=== PATIENT | male | born 1960 | race Caucasian/White ===

== ENCOUNTER 2024-03-21 12:16 | Outpatient (CLI) | payer OTHER, SELFPAY ==
[2024-03-21 13:03] LABS: Creatinine* 0.8 mg/dL (0.5-1.5); Estimated Glomerular Filt Rate 100 ml/min
== END 2024-03-21 12:17 | disposition home or self-care (01) ==
LOC: CT 12:22
PROVIDERS: PCP Family Medicine; Visit Provider Family Medicine
DX: R31.29 Other microscopic hematuria (principal); K57.30 Diverticulosis of large intestine without perforation or abscess without bleeding
CPT/HCPCS: 36415; 74178; 82565; Q9967

== ENCOUNTER 2024-05-29 07:06 | Outpatient (CLI) | payer OTHER, SELFPAY ==
--- NOTE | 2024-05-29 08:40 | P.ANES_ITS ---
Anesthesia Charges Start Date/Time Anesthesia Start Date: 05/29/24 Anesthesia Start Time: 08:01 Stop Date/Time Anesthesia Stop Date: 05/29/24 Anesthesia Stop Time: 08:34 Coding CPT Codes CPT Codes: LAINA LWR INTST NDSC NOS - 11049 ([id number]) P2 - PATIENT W/MILD SYST DISEASE, QK - DAIRY FARM OPERATOR 2-4 CNCRNT ANES PROC, QX - TELEHEALTH NURSE SVC W/ MD MED DIRECTION
--- NOTE | 2024-05-29 08:40 | W.ANESCHARGE ---
Anesthesia Charges Start Date/Time Anesthesia Start Date: 05/29/24 Anesthesia Start Time: 08:01 Stop Date/Time Anesthesia Stop Date: 05/29/24 Anesthesia Stop Time: 08:34 Coding CPT Codes CPT Codes: LAINA LWR INTST NDSC NOS - 30801 ([id number]) P2 - PATIENT W/MILD SYST DISEASE, QK - FARM BOSS 2-4 CNCRNT ANES PROC, QX - SCIENCE EDUCATION PROFESSOR SVC W/ MD MED DIRECTION
--- NOTE | 2024-05-29 12:07 | P.ANES_ITS ---
Anesthesia Charges Start Date/Time Anesthesia Start Date: 05/29/24 Anesthesia Start Time: 08:01 Stop Date/Time Anesthesia Stop Date: 05/29/24 Anesthesia Stop Time: 08:34 Coding CPT Codes CPT Codes: LAINA LWR INTST NDSC NOS - 53552 ([id number]) QK - BRAKE HOLDER 2-4 CNCRNT LAINA PROC, QX - QUILL FIXER SVC W/ MD MED DIRECTION, P2 - PATIENT W/MILD SYST DISEASE
--- NOTE | 2024-05-29 12:07 | W.ANESCHARGE ---
Anesthesia Charges Start Date/Time Anesthesia Start Date: 05/29/24 Anesthesia Start Time: 08:01 Stop Date/Time Anesthesia Stop Date: 05/29/24 Anesthesia Stop Time: 08:34 Coding CPT Codes CPT Codes: LAINA LWR INTST NDSC NOS - 16747 ([id number]) QK - RECEIVING SUPERVISOR 2-4 CNCRNT LAINA PROC, QX - SUPERVISOR PARKING LOT SVC W/ MD MED DIRECTION, P2 - PATIENT W/MILD SYST DISEASE
== END 2024-05-29 07:07 | disposition home or self-care (01) ==
LOC: OP CLINIC 07:06
PROVIDERS: PCP Family Medicine; Visit Provider Surgery
DX: Z12.11 Encounter for screening for malignant neoplasm of colon (principal); Z86.0109 Personal history of other colon polyps; Z80.0 Family history of malignant neoplasm of digestive organs; K57.30 Diverticulosis of large intestine without perforation or abscess without bleeding; D12.3 Benign neoplasm of transverse colon; D12.1 Benign neoplasm of appendix
CPT/HCPCS: 00811; 00812; 45385; 88305; J2405; J2704

== ENCOUNTER 2024-06-15 12:01 | Emergency (ER) | payer OTHER, SELFPAY ==
--- OUTSIDE RECORDS SUMMARY | 2024-06-15 12:04 | XMS_ITS | Encounter Summary ---
Author Organization [facility] Address [address] [place] [address] Care Team Providers Care Basket Bottom Machine Operator Name Role Phone Unavailable Primary Care Provider Unavailabl e Encounter Details Date Type Department Care Team (Late st Contact Info) Description 02/17/2016 Historical Ophthalmology RST OPH 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 - 02/17/2016 10:06 AM CST Eye General CHIEF COMPLAINT Follow up. HISTORY OF PRESENT ILLNESS PM: Last saw Rheum in January and was felt to be approaching remission. Currently on Pred 2.5 mg PO BID (down from 40 mg per day) and is on 6 tablets of MTX per week. He feels like overall eyes are getting better. He has a history of steroid induced glaucoma. Has had some intermittent eye pain since last visit. It occurs daily and is typically present. Right eye ball itself sometimes hurts. Leftside is more in the orbit radiating to other parts o the head. Right is 1/10 dull pain associated with some stabbing. Left eye 5/10 and is a more constant dull ache with some stabbing type of pain. Overall, pain has improved since last visit. No double vision. Vision is okay with glasses. 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 Could consider local steroid. His optic nerves look fine but could consider starting topical ocular antihypertensive. He still has some pain and it is not trochlea related. Scan is better but not completely resolved. We discussed options including retrobulbar steroids (kenalog 40, decadron 4). He wishes to proceed. Note intraocular pressures but thick corneas. Let's get baseline disc photos + nerve fiber layer OCTfirst He'll call in 3 weeks or so DIAGNOSIS #1 ANCA-associated vasculitis #2 Left orbital inflammation #3 Steroid induced ocular hypertension CDM Reports - EYEGEN Id: [id number] Status: Fnl documented in this encounter Plan of Treatment Upcoming Encounters Date Type Department Care Team (Late st Contact Info) Description 06/26/2024 7:30 AM CDT Appointment Department of Laboratory Medicine and Pathology, [facility] in [place], [place] [address] [place] [phone] Shauna Schmidt APRN, C.N.P., M.S. [address] [place] [phone] 06/26/2024 7:40 AM CDT Appointment Department of Laboratory Medicine and Pathology, [facility] in [place], [place] [address] [place] [phone] Shauna Schmidt APRN, C.N.P., M.S. [address] [place] [phone] 06/26/2024 9:30 AM CDT Office Visit Division of Rheumatology in [place], [place] [address] [place] [phone] Shauna Schmidt APRN, C.N.P., M.S. [address] [place] [phone] documented as of this encounter Visit Diagnoses Not on filedocumented in this encounter Additional Health Concerns Infection Onset Date Last Indicated Resolved Time Protective Environment 06/08/2022 06/08/2022 documented as of this encounter
--- OUTSIDE RECORDS SUMMARY | 2024-06-15 12:04 | XMS_ITS | Clinical Summary ---
Author Organization [facility] Address [address] [place] [address] Care Team Providers Care Dough Sheeter Name Role Phone Unavailable Primary Care Provider Unavailabl e Source Comments Patient records contain information from all sites at [facility]. For routine questions regarding patient records, call [phone] during business hours, M-F 8:00 AM - 5:00 PM Central Time. Record requests for emergency care only can be directed to [phone] at any time.[facility] Allergies Active Allergy Reactions Criticality Noted Date Comments Gluten GI intolerance 12/04/2018 Hydrocodone-Acetaminophen Other (see comments) 11/19/2014 aggitation Ibuprofen GI intolerance 11/19/2014 Omeprazole GI intolerance 11/19/2014 Opioids - Morphine Analogues Other (see comments) 11/19/2014 Aggitation Shellfish Containing Products Other (see comments) 11/19/2014 Shellfish Derived Other (see comments) Low 08/28/19 15 Tamsulosin Other (see comments) 07/30/2013 Medications tretinoin (RETIN-A) 0.05 % cream Apply 1 Application topically at bedtime. Apply to face daily at bedtime. 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 Updated lab work required for further refills. 84 tablet 1 12/28/19 24 Active levothyroxine 137 mcg tablet Take 137 mcg by mouth daily before morning meal. 03/03/19 25 Active Active Problems Problem Noted Date Diagnosed Date Vasculitis Antineutrophil Cytoplasmic Antibody A ssociated 06/23/2015 Encounters Date Type Department Care Team Description 05/12/2024 Orders Only Division of Rheumatology in [place], [place] [address] [place] [phone] Shauna Schmidt APRN, C.N.P., M.S. 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 Hematuria Urinalysis (Primary Dx); Benign Prostatic Hyperplasia Hypertrophy With Obstruction; Slowing Urinary Stream from Last 3 Months Immunizations Immunization Administration Dates Next Due Influenza TIV (IM) 02/18/2012,12/08/2009 Influenza, Injectable, Mdck, Preservative Free, Quadrivalent 01/15/2016 Influenza, Seasonal, Injectable 02/18/2012,12/08 RZV (SHINGRIX) 01/03/2019 SARS-COV-2 (COVID-19) - MODERNA(Discontinued) 10/01/2020 Td (Adult), adsorbed 08/22/2021 Tdap 12/08/2009 influenza vaccine quad (FLUZONE/FLUARIX) (6 months and older)(PF) 12/04/2020,12/02/2019,11/29/2018,2017,12/05/2013 Family History Medical History Relation Name Comments Alcohol abuse Brother thomas cuca Lung cancer Brother thomas cuca Alcohol abuse Father Thomas brianil Coronary artery disease Father's Brother josselin heil Diabetes Father's Brother josselin heil Alcohol abuse Maternal Grandfather Kelvin alamo Dementia Maternal Grandmother tiesha alamo Depression Maternal Grandmother tiesha alamo Hyperlipidemia Maternal Grandmother tiesha alamo Hypertension Maternal Grandmother tiesha alamo Rheum arthritis Maternal Grandmother tiesha alamo Depression Mother nate heil Hyperlipidemia Mother nate hejaya Rectal cancer Mother nate zaman 1986 at 5 9 years old Alcohol abuse Paternal Grandfather Elias [place] chronic leukemia Leukemia Paternal Grandfather Elias [place] chronic leukemia Alcohol abuse Sister 1 [employer] Depression Sister 1 [employer] [place] Hyperlipidemia Sister 1 [employer] [place] Alcohol abuse Sister 2 romy heil Anxiety disorder Sister 2 romy heil Depression Sister 2 romy heil Drug abuse Sister 2 romy heil Thyroid disease Sister 2 romy heil Alcohol abuse Sister 3 israel heil Drug abuse Sister 3 israel heil Hyperlipidemia Sister 3 israel heil Thyroid disease Sister 4 Rain Talbot ( Cuca) Relation Name Status Comments Brother thomas cuca Father Thomas austyn Father's Brother josselin zaman Maternal Grandfather Kelvin alamo Maternal Grandmother tiesha alamo Mother nate heil Paternal Grandfather Elias [place] chronic leukemia Sister 1 [employer] [place] Sister 2 romy heil Sister 3 israel heil Sister 4 Rain [place] ( Cuca) Social History Tobacco Use Types Packs/Day Years Used Date Smoking Tobacco: Former Cigarettes 1 03/17/1974 - 12/16/1977 Smokeless Tobacco: Never Tobacco Cessation:Counseling Given: Not Answered Alcohol Use Standard Drinks/Week Comments Yes 1 (1 standard drink = 0.6 oz pur e alcohol) [facility] Utilities Answer Date Recorded In the past 12 months has e [employer], gas, oil, or water [employer] threatened to shut off services in your home? No 06/15/2023 Humiliation, Afraid, Rape, and Kick questionnair e Answer Date Recorded Within the last year, have y ou been afraid of your partner or ex-partner? No 06/04/2022 Within the last year, have y ou been humiliated or emotionally abused in other ways by your partner or ex-partner? No Within the last year, have y ou been kicked, hit, slapped, or otherwise physically hurt by your partner or ex-partner? No 06/04/2022 Within the last year, have y ou been raped or forced to have any kind of sexual activity by your partner or ex-partner? No 06/04/2022 Social Connection and Isolat ion Panel [NHANES] Answer Date Recorded In a typical week, how many times do you talk on the phone with family, friends, or neighbors? Once a week 06/04/2022 How often do you get togethe r with friends or relatives? More than three times a week 06/04/2022 Attends Buddhism Services Not on file 06/04 Do you belong to any clubs o r organizations such as episcopalian groups, unions, fraternal or athletic groups, or school groups? Yes 06/04/2022 How often do you attend meet ings of the clubs or organizations you belong to? More than 4 times per year 06/04/2022 Are you , , di vorced, , never , or living with a partner? 06/04/2022 AUDIT-C Answer Date Recorded Q1: How often do you have a drink containing alc ohol? Monthly or less 06/04/2022 Q2: How many drinks containi ng alcohol do you have on a typical day when you are drinking? 1 or 2 06/04/2022 Q3: How often do you have si x or more drinks on one occasion? Never 06/04/2022 Overall Financial Resource Strain (CARDIA) Answe r Date Recorded How hard is it for you to pa y for the very basics like food, housing, medical care, and heating? Not hard at all 06/04/2022 [facility] - Occupational Stress Questionnaire Answer Date Recorded Do you feel stress - tense, restless, nervous, or anxious, or unable to sleep at night because your mind is troubled all the time - these days? To some extent 06/04/2022 Exercise Vital Sign Answer Date Recorde d On average, how many days pe r week do you engage in moderate to strenuous exercise (like a brisk walk)? 3 days 06/15/2023 On average, how many minutes do you engage in exercise at this level? 90 min 06/15/2023 Hunger Vital Sign Answer Date Recorded Within the past 12 months, y ou worried that your food would run out before you got the money to buy more. Never true 06/15/19 24 Within the past 12 months, t he food you bought just didn't last and you didn't have money to get more. Never true 06/15/2023 PRAPARE - Transportation Answer Date Re corded In the past 12 months, has l ack of transportation kept you from medical appointments or from getting medications? No 06/05 In the past 12 months, has l ack of transportation kept you from meetings, work, or from getting things needed for daily living? No 06/15/2023 Nutrition Answer Date Recorded On average, how many serving s of fruits and vegetables do you eat per day (serving size is equal to 1 cup or approximately the size of a tennis ball)? 0-2 06/15/2023 Dental Answer Date Recorded Dental: Regular Dentist Yes 10/02/19 Employment Answer Date Recorded Employment status Employed and actively working without restrictions 06/15/2023 Housing Stability Answer Date Recorded What is your living situation today? I have a [facility] place to live 06/15/2023 Education Answer Date Recorded What is the highest level of school you have completed or the highest degree you have received? 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 Gender Identity Male 07/24/2017 12:19 PM CDT Sexual Orientation Lesbian or Clark 07/24/2017 12 :19 PM CDT Last Filed Vital Signs Vital Sign Reading Time Taken Comments Blood Pressure 128/69 12/28/2023 1:02 PM AUTOMATIC CLIPPER Pulse 69 12/28/2023 1:02 PM AUTOMATIC CLIPPER Temperature 36.3 C (97.3 F) 12/28/2023 1:02 PM AUTOMATIC CLIPPER Respiratory Rate - - Oxygen Saturation - - Inhaled Oxygen Concentration - - Weight 66 kg (145 lb 8.1 oz) 12/28/2023 1:02 PM AUTOMATIC CLIPPER Height 180.8 cm (5' 11.18) 12/28/2023 1:[address] Body Mass Index 20.19 12/28/2023 1:02 PM AUTOMATIC CLIPPER Plan of Treatment Upcoming Encounters Date Type Department Care Team (Late st Contact Info) Description 06/26/2024 7:30 AM CDT Appointment Department of Laboratory Medicine and Pathology, [facility], in [place], [place] [address] [place] [phone] Shauna Schmidt APRN, C.N.P., M.S. [address] [place] [phone] 06/26/2024 7:40 AM CDT Appointment Department of Laboratory Medicine and Pathology, [facility], in [place], [place] [address] [place] [phone] Shauna Schmidt APRN, C.N.P., M.S. [address] [place] [phone] 06/26/2024 9:30 AM CDT Office Visit Division of Rheumatology in [place], [place] [address] [place] [phone] Shauna Schmidt APRN, C.N.Tru., M.S. [address] [place] [phone] Health Maintenance Due Date Last Done Comments CT Colonography 1962 Cologuard 1962 Hepatitis A Vaccines (1 of 2 - Risk 2-dose series) 1981 Pneumococcal vaccine (50+ years) (1 of 2 - PCV) 1981 Zoster Vaccines (2 of 2) 02/28/2019 01/03/2019 Hepatitis B Vaccines (1 of 3 - Risk 3-dose series) 2022 RSV vaccine - (32-36 weeks) or 60+ years (1 - Risk 60-74 years 1-dose series) 2022 Colonoscopy 09/21/2022 09/21/2017 Colorectal Cancer Surveillance 09/21/2022 Fasting Glucose for Diabetes Screening 03/26/2023 03/26/2020, 12/02/2019, 01/14/2019 Thyroid Stimulating Hormone (TSH) test for thyroid function 12/15/2023 12/14/2022, 08/22/2021, 12/02/2019, Additional history exists Depression Screening (Annual PHQ-2) 02/06/2024 COVID-19 Vaccine (7 - Moderna risk season) 2024 01/12/2024, 12/10/2021, 05/07/2021, Additional history exists Lipid (Cholesterol) Screening 12/15/2027 12/14/2022, 08/22/2021 DTaP,Tdap,and Td Vaccines (3 - Td or Tdap) 08/23/2031 08/22/2021, 12/08/2009 Hepatitis C Screening Completed 06/23/2015 Influenza Vaccine Completed 01/12/2024, , 12/10/2021, Additional history exists HPV Vaccines Aged Out No longer eligi ble based on patient's age to complete this topic IPV Vaccines Aged Out No longer eligi ble based on patient's age to complete this topic Procedures Procedure Name Priority Date/Time Associated Diagnosis Comments UROLOGY IMAGE EXAM Routine 05/01/2024 9: [address] Routine 03/21/2024 1:25 PM AUTOMATIC CLIPPER GLUCOSE, FASTING, S/P Routine 03/26/2020 10:24 AM AUTOMATIC CLIPPER 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 The clinical documentation to support these images can be found on the encounter that produced images. us Provider Not In System IMG NON RAD IMAGING PROCE DURES Final Result [facility] NA * CT UROGRAM-Outside CT (03/21/2024 1:25 PM AUTOMATIC CLIPPER) Narrative [facility] - 04/18/2024 4:59 PM CDT This order has been created and auto-finalized to support the import of outside images. If available, original interpretation can be found on the Media Tab in Chart Review, in Document Viewer, as an image in InfinityView or as an Addendum. If a re-interpretation or overread is required please follow defined workflow. us Provider Not In System IMG CT PROCEDURES Final R esult Performing Organization Address [place] Co de Phone Number [facility] NA * Glucose, Fasting (03/26/2020 10:24 AM AUTOMATIC CLIPPER) Pathologist [facility] Glucose, P 99 70 - 100 mg/dL 03/26/2020 11:28 AM AUTOMATIC CLIPPER DTL Last Intake 13 hr 03/26/2020 10:44 AM AUTOMATIC CLIPPER DTL Blood (Blood, Venous) 03/26/2020 10:24 AM AUTOMATIC CLIPPER 03/26/2020 10:44 AM AUTOMATIC CLIPPER Shauna Schmidt APRN, C.N.P., M.S. LAB BLOOD NO N ADD-ON Final Result Performing Organization Address [facility] de Phone Number [facility] 200 [place] [address], [facility] [address] [place] [address] * Thyroid Function [place] (09/20/2018 11:01 AM CDT) Pathologist [facility] TSH, Sensitive 1.8 0.3 - 4.2 mIU/L 09/20/2018 3:11 PM CDT Blood (Blood, Venous) 09/20/2018 11:01 AM CDT 09/20/2018 2:15 PM CDT Shauna Schmidt APRN, C.N.P., M.S. LAB BLOOD AD D-ON Final Result Performing Organization Address [facility] Co de Phone Number [facility] [address] [place] [phone] * (ABNORMAL) Chronic Hepatitis Profile (06/23/2015 5:54 PM CDT) HBs Antibody, Quantitative, S <5.0 Unvaccinate d: <5.0; Vaccinated: >=12.0 MIU/ML [facility] HCV Ab, S Negative Negative [facility] [place] Comment:[id number] rat io is <1.00. HBs Antigen, S Negative Negative [facility] HBs Antibody,S Negative Unvaccinate d: Negative; Vaccinated: Positive [facility] Comment:Patient is presumed to be not immune to infection with HBV. HBc Total Ab, S Positive(A) Negative [facility] Comment: If clinically indicated, testing for Hepatitis B Core IgM antibody is necessary to differentiate between acute and past HBV infection. 06/23/2015 5:54 PM CDT 06/23/2015 5:54 PM CDT Olegario Ndiaye M.D. LAB MICROBIOLOGY - BLOOD ORDERABLES Final Result [facility] [address] from Last 3 Months or Most Recently Relevant to Health Maintenance Additional Health Concerns Infection Onset Date Last Indicated Protective Environment 06/08/2022 3 Insurance [employer] [place] [id number]
--- OUTSIDE RECORDS SUMMARY | 2024-06-15 12:04 | XMS_ITS | Encounter Summary ---
Author Organization [facility] Address [address] [place] [address] Care Team Providers Care Dynamotor Repairer Name Role Phone Unavailable Primary Care Provider Unavailabl e Reason for Visit * Reason Comments Consult Blood in Urine * Appointment Request (Routine) - Pending Review Specialty Diagnoses / Procedures Referred By Pari hyde Referred To Contact Urology Diagnoses Microhematuria Rush Hope M.D. [address] [place] [phone] Phone: tel: fax: Referral ID Status Reason Start Date Expiration Date V isits Requested Visits Authorized [id number] Pending Review 03/26/2024 06/26/2025 1 1 Encounter Details Date Type Department Care Team (Latest Contact Info) Description 05/01/2024 9:15 AM CDT Comprehensive Visit Department of Urology in [place], [place] [address] [place] [address] Alexandro Gomez M.D. [address] [place] [address] Hematuria Urinalysis (Primary Dx); Benign Prostatic Hyperplasia Hypertrophy With Obstruction; Slowing Urinary Stream Social History Tobacco Use Types Packs/Day Years Used Date Smoking Tobacco: Former Cigarettes 1 03/17/1974 - 12/16/1977 Smokeless Tobacco: Never Alcohol Use Standard Drinks/Week Comments Yes 1 (1 standard drink = 0.6 oz pur e alcohol) [facility] Utilities Answer Date Recorded In the past 12 months has th e [employer], gas, oil, or water [employer] threatened to shut off services in your [...] than three times a week 06/04/2022 Attends Cheondoism Services Not on file 06/04 Do you belong to any clubs o r organizations such as jehovah's witness groups, unions, fraternal or athletic groups, or [...] and heating? Not hard at all 06/04/2022 [facility] Occupat ional Health - Occupational Stress [...] Date Recorded Dental: Regular Dentist Yes 10/02/19 21 Employment Answer Date Recorded Employment status Employed and actively working without restrictions 06/15/2023 Housing Stability Answer Date Recorded What is your living situation today? I have a [facility] place to live 06/15/2023 Education Answer Date Recorded What is the highest level of school you have completed or the highest degree you have received? Associate degree: academic program 06/04/2022 Sex and Gender Information Value Date Recorded Sex Assigned at Male 09/15/2019 12:11 AM CDT Legal Sex Male 9:15 PM [employer]GER [employer] Gender Identity Male 07/24/2017 12:19 PM CDT Sexual Orientation Lesbian or Clark 07/24/2017 12 :19 PM CDT documented as of this encounter Procedure Notes * Alexandro Gomez M.D. - 05/01/2024 9:15 AM CDT CHIEF COMPLAINT / REASON FOR VISIT Cystoscopy. The patient was appropriately identified with at least two separate identifiers and the correct procedure was confirmed. Verbal consent was obtained. INDICATION: Microscopic hematuria, lower urinary tract symptoms and thickened bladder wall INSTRUMENT: Flexible cystourethroscope. ANESTHESIA: 2% aqueous lidocaine jelly introduced into the urethra. PROCEDURE: The patient was placed in a supine position. The genitalia were prepped and draped sterilely. The urethra was anesthetized with 2% aqueous lidocaine jelly. The cystoscope was advanced intothe urethra. FINDINGS: Meatus: Normal. Urethra: unremarkable. Prostate: Length: 3.5 cm. Lateral Lobes: Mild to moderate hypertrophy with partial visual obstruction. Middle Lobe: absent. Bladder Neck: Elevated median bar and Lateral lobes protrude into the bladder . Residual Urine: Minimal (< 75 ml). Ureteral Orifices: Singular bilaterally, normal position on the trigone, slit- like in configurationand with clear efflux of urine noted bilaterally. Trabeculation: mild. Tumors: No tumors, exophytic lesions, foreign bodies or calculi. The procedure was well tolerated by the patient. No uninhibited contractions. Normal sensation of filling. Post cystoscopy uroflow is performed: Electronic calibrated uroflow is performed. The patient voided 166 mL of urine in 46.7 seconds. Peak flow is 8.1 mL/sec with a mean flow of 3.7 mL/sec. The shapeof the curve is slow with a gradual taper. Bladder scan postvoid residual is estimated to be 4 mL. He was discharged from the office in satisfactory condition. Post-cystoscopy instructions were reviewed with him. IMPRESSION: 1. Alen-xv-lpydoyeg benign prostatic hypertrophy with mild lower urinary tract symptoms 2. Otherwise normal cystoscopy, bladder wall thickening consistent with trabeculation 3. Empties bladder well PLAN: See separate dictation of today's date. Alexandro Gomez M.D. 05/01/24 10:09 AM CDT documented in this encounter Consult Notes * Alexandro Gomez M.D. - 05/01/2024 9:15 AM CDT SUBJECTIVE CHIEF COMPLAINT / REASON FOR VISIT Chief Complaint Patient presents with Consult Blood in Urine REFERRING PROVIDER: Rush Hope M.D. HISTORY OF PRESENT ILLNESS This is a 64-year-old male whom I am asked to see. He was recently found to have 3 to 10 red cells per high-powered field. He has never had gross hematuria. He has a many year history of reduced force of stream, split stream, some dribbling and urgency. The patient has smoked briefly in his teen years. He works as a hairdresser. No other unusual chemical exposures. Grandparent with a history of bladder cancer. He indicates a few years ago another urologist placed him on tamsulosin. He had significant side effects including fatigue and rhinorrhea. He did not observe any improvement in his stream. I-PSS Urinary Symptoms Score: (Patient-Rptd) 11 I-PSS Quality of Life Score: (Patient-Rptd) 3 Answers submitted by the patient for this visit: Urinary Symptoms (Submitted on 04/28/2024) Sensation that your bladder is not completely emptying after urinating: Yes Weak/poor urine stream: Yes None of the above: Yes Are you able to sense when your bladder is full?: Yes How many times daily do you typically urinate during the day?: 5 How many times do you typically wake up and urinate at night?: 1 Have you had a urinary tract infection (UTI) within the past 1 year, and if so how many?: none Have you had any kidney infections or required hospitalized for kidney failure?: No Have you required a catheter placed because you could not empty your bladder?: No Do you ever unintentionally leak urine?: No Have you ever or are currently taking any treatments to treat your urinary symptoms?: none Have you ever had any surgical or office procedures to improve your urinary symptoms?: No MEDICAL HISTORY Medical History[1] SURGICAL HISTORY Surgical History[2] FAMILY HISTORY Family History[3] SOCIAL HISTORY Social History Tobacco Use Smoking status: Former Current packs/day: 0.00 Types: Cigarettes Start date: 01/14/1975 Quit date: 12/16/1977 Years since quittin.4 Smokeless tobacco: Never Substance Use Topics Alcohol use: Yes Alcohol/week: 1.0 standard drink of alcohol Types: 1 Glasses of wine per week CURRENT MEDICATIONS Current Medications[4] ALLERGIES/ CONTRAINDICATIONS Allergies[5] OBJECTIVE VITAL SIGNS There were no vitals taken for this visit. PHYSICAL EXAMINATION General: Healthy-appearing adult male in no apparent distress. No communication barriers. Head: No abnormality of appearance. No facial abnormalities. No neck masses. Thyroid: No thyroid enlargement. Heart: Regular rate and rhythm. Abdominal aorta is not palpable. Femoral pulses are 2+ and equal bilaterally. No peripheral cyanosis or edema. Lungs: Normal respiratory movements. No shortness of breath. Abdomen: Flat and nondistended. No guarding. No tenderness. No ascites. No hepatosplenomegaly. Kidneys are not palpable. Bladder size is normal. There are no ventral hernias. There are no inguinal hernias. Rectum: Perirectal Region: Unremarkable without evidence of condyloma, skin tags or other lesions. Rectal sphincter tone is normal. There are no rectal masses. Prostate: Prostate is approximately 40 grams in size. It is smooth in consistency. It is symmetrical. Prostate is without nodules or tenderness. Seminal vesicles are normal. Genitalia: Penis: No discharge, no masses and no plaques. Meatus is normally located on the glans penis, there is no meatal scarring and it is of normal size. Penis is circumcised. Scrotum: No rashes. No hydroceles or spermatoceles are present. No palpable varicocele is noted. Testes: Both testes are descended. They are without masses or tenderness. Each testis is of normal size and consistency. Epididymides: Each epididymis is of normal size, without masses, without tenderness or signs of epididymitis. Both the right and left vas deferens are palpable. Perineum: Unremarkable. There are no obvious skin tags, condyloma or other lesions. Spine: No spinal tenderness. No costovertebral angle tenderness. DIAGNOSTICS Prostate specific antigen dated February 28, 2024 is 1.25 Urine cytology from February 28, 2024 reveals no high-grade urothelial cells, there are prominent clusters of bland urothelial cells present CT urogram is reviewed. I reviewed the films, I do not have access to the report. Some bladder wallthickening is identified, particularly near the dome of the bladder. No solid renal masses. No urinary tract stones. No hydronephrosis. No defects of filling. Large prostate. Cystoscopy is performed today and detailed in the separate report. This is combined with a uroflow.Briefly evidence of benign prostatic hypertrophy. Prostate extension into the bladder with an elevated median bar. Slow stream but empties bladder well. ASSESSMENT / PLAN #1 Hematuria Urinalysis #2 Benign Prostatic Hyperplasia Hypertrophy With Obstruction #3 Slowing Urinary Stream Plan: We discussed the possibility of medical and surgical management for benign prostatic hypertrophy. Given his relatively mild symptoms and excellent bladder emptying he does not require treatment at this point. It is merely an option. We discussed a variety of medicines including alpha blockers, medicine such as finasteride and a variety of procedures. The patient will let us know if he is interested in trialing finasteride. He has already tried and was not happy with tamsulosin. In regards to his hematuria I would recommend that he have a repeat urinalysis and urine cytology under the auspices of his primary provider. If either of these change adversely repeat evaluation should be considered. We discussed foods that may be beneficial to prostate health. Alexandro Gomez M.D. 05/01/24 10:32 AM CDT [1] Past Medical History: Diagnosis Date Anxiety Generalized Disorder Use clonazepam daily or prn BenignProstatic Hyperplasia Localized Year approximately 1999 Gastroesophageal Reflux Disease NOS Approximately year 2004 Headache Unspecified Occasional for last 3 months approximately Hepatitis Positive core antibody / DNA negative Hyperlipidemia Approximately year 1999 Hypothyroidism Liver Disease Positive core antibody hepatitis B Other Specified Health Status ANCA positive Vasculatis Skin lesions Polyp Colon 2013 Skin Cancer (Primary) NOS Nasal cell face Stone Kidney Past 10 years have had two episodes [2] Past Surgical History: Procedure Laterality Date ORBIT - ORBITOTOMY Left 11/24/2014 Orbit - orbitotomy Notes: superior orbitotomy, incisional biopsy [3] Family History Problem Relation Name Age of Onset Depression Mother nate heil Hyperlipidemia Mother nate heil Rectal cancer Mother nate heil 1986 at 59 years old Depression Maternal Grandmother tiesha alamo Dementia Maternal Grandmother tiesha alamo Hypertension Maternal Grandmother tiesha alamo Hyperlipidemia Maternal Grandmother tiesha alamo Rheum arthritis Maternal Grandmother tiesha alamo Depression Sister [employer] Hyperlipidemia Sister [employer] Alcohol abuse Sister [employer] [place] Depression Sister romy heil Anxiety disorder Sister romy heil Thyroid disease Sister romy heil Alcohol abuse Sister romy heil Drug abuse Sister romy heil Coronary artery disease Father's Brother josselin heil Diabetes Father's Brother josselin heil Hyperlipidemia Sister israel heil Alcohol abuse Sister israel heil Drug abuse Sister israel heil Lung cancer Brother thomas blunt Alcohol abuse Brother thomas cuca Leukemia Paternal Grandfather Elias Zaman chronic leukemia Alcohol abuse Paternal Grandfather Elias Zaman chronic leukemia Thyroid disease Sister Rain Talbot ( Blunt) Alcohol abuse Maternal Grandfather Kelvin alamo Alcohol abuse Father Thomas zaman [4] Current Outpatient Medications Medication Sig Dispense Refill folic acid 1 mg tablet Take 1 tablet (1,000 mcg total) by mouth daily. 90 tablet 3 levothyroxine 137 mcg tablet Take 137 mcg by mouth daily before morning meal. methotrexate (TrexalL) 2.5 mg tablet Take 7 tablets (17.5 mg total) by mouth once a week. Updated lab work required for further refills. 84 tablet 1 tretinoin (RETIN-A) 0.05 % cream Apply 1 Application topically at bedtime. Apply to face daily at bedtime. 45 g 3 No current facility-administered medications for this visit. [5] Allergies Allergen Reactions Gluten GI intolerance Hydrocodone-Acetaminophen Other (see comments) aggitation Ibuprofen GI intolerance Omeprazole GI intolerance Opioids - Morphine Analogues Other (see comments) Aggitation Shellfish Containing Products Other (see comments) Tamsulosin Other (see comments) Shellfish Derived Other (see comments) documented in this encounter Plan of Treatment Upcoming Encounters Date Type Department Care Team (Late st Contact Info) Description 06/26/2024 7:30 AM CDT Appointment Department of Laboratory Medicine and Pathology, [place], [place] [address] [place] [phone] Shauna Schmidt APRN, C.N.P., M.S. [address] [place] [phone] 06/26/2024 7:40 AM CDT Appointment Department of Laboratory Medicine and Pathology, [place], [place] [address] [place] [address] Shauna Schmidt APRN, C.N.P., M.S. [address] [place] [phone] 06/26/2024 9:30 AM CDT Office Visit Division of Rheumatology in [place], [place] [address] [place] [phone] Shauna Schmidt, HALLE C.N.P., M.S. [address] [place] [phone] documented as of this encounter Visit Diagnoses Diagnosis Hematuria Urinalysis- Primary Benign Prostatic Hyperplasia Hypertrophy With Obstruction Slowing Urinary Stream documented in this encounter Additional Health Concerns Infection Onset Date Last Indicated Resolved Time Protective Environment 06/08/2022 06/08/2022 documented as of this encounter
--- OUTSIDE RECORDS SUMMARY | 2024-06-15 12:04 | XMS_ITS | Encounter Summary ---
Author Organization [facility] Address [address] [place] [address] Care Team Providers Care Pizza Chef Name Role Phone Unavailable Primary Care Provider Unavailabl e Encounter Details Date Type Department Care Team (Late st Contact Info) Description 07/21/2016 Historical Ophthalmology RST OPH 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 - 07/21/2016 8:17 AM CDT Eye General CHIEF COMPLAINT Checkup HISTORY OF PRESENT ILLNESS Overall doing well from eye standpoint. no steroids since April. MTX pills now (15 mg once a week) IMPRESSION / REPORT / PLAN #1 ANCA-associated vasculitis #2 Left orbital inflammation appears to be quiet today Get MRI with contrast. #3 Steroid induced ocular hypertension OK today He sees Emma in Sep, DIAGNOSIS #1 ANCA-associated vasculitis #2 Left orbital inflammation #3 Steroid induced ocular hypertension CDM Reports - EYEGEN Id: [id number] Status: Fnl documented in this encounter Plan of Treatment Upcoming Encounters Date Type Department Care Team (Late st Contact Info) Description 06/26/2024 7:30 AM CDT Appointment Department of Laboratory Medicine and Pathology, [facility] in [place], [place] [address] [place] [phone] Shauna Schmidt APRN, C.N.P., M.S. [address] [place] [phone] 06/26/2024 7:40 AM CDT Appointment Department of Laboratory Medicine and Pathology, [facility] in [place], [place] [address] [place] [phone] Shauna Schmidt APRN, C.N.P., M.S. [address] [place] [phone] 06/26/2024 9:30 AM CDT Office Visit Division of Rheumatology in [place], [place] [address] [place] [phone] Shauna Schmidt APRN, C.N.P., M.S. [address] [place] [phone] documented as of this encounter Visit Diagnoses Not on filedocumented in this encounter Additional Health Concerns Infection Onset Date Last Indicated Resolved Time Protective Environment 06/08/2022 06/08/2022 documented as of this encounter
--- OUTSIDE RECORDS SUMMARY | 2024-06-15 12:04 | XMS_ITS | Encounter Summary ---
Author Organization [facility] Address [address] [place] [address] Care Team Providers Care Wick And Base Assembler Name Role Phone Unavailable Primary Care Provider Unavailabl e Encounter Details Date Type Department Care Team (Late st Contact Info) Description 05/12/2024 Orders Only Division of Rheumatology in [place], [place] [address] [place] [phone] Shauna Schmidt, HALLE, C.N.P., M.S. 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) Social History Tobacco Use Types Packs/Day Years Used Date Smoking Tobacco: Former Cigarettes 1 03/17/1974 - 12/16/1977 Smokeless Tobacco: Never Alcohol Use Standard Drinks/Week Comments Yes 1 (1 standard drink = 0.6 oz pur e alcohol) [facility] Utilities Answer Date Recorded In the past 12 months has e [employer], gas, oil, or water [employer] threatened to shut off services in your [...] than three times a week 06/04/2022 Attends Congregational Services Not on file 06/04 Do you belong to any clubs o r organizations such as worship groups, unions, fraternal or athletic groups, or [...] and heating? Not hard at all 06/04/2022 [facility] of Occupat ional Health - Occupational Stress [...] your living situation today? I have a [facility] place to live 06/15/2023 Education Answer Date Recorded What is the highest level of school you have completed or the highest degree you have received? 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 [address] [place] [phone] 06/26/2024 7:40 AM CDT Appointment Department of Laboratory Medicine and Pathology, [place], [place] [address] [place] [phone] Shauna Schmidt APRN C.N.P., M.S. [address] [place] [phone] 06/26/2024 9:30 AM CDT Office Visit Division of Rheumatology in [place], [place] [address] [place] [phone] Shauna Schmidt APRN, C.N.P., M.S. 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) Expected: 06/26/2024, Expires: 05/12/2025 ALT (Alanine Aminotransferase) Lab Routine 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) Expected: 06/26/2024, Expires: 05/12/2025 Creatinine with Estimated GFR Lab Routine 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) Expected: 06/26/2024, Expires: 05/12/2025 ANCA (Antineutrophil Cytoplasmic Antibodies) Vasculitis Panel Lab Routine 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
--- OUTSIDE RECORDS SUMMARY | 2024-06-15 12:04 | XMS_ITS | Encounter Summary ---
Author Organization [facility] Address [address] [place] [address] Care Team Providers Care Riprap Worker Name Role Phone Unavailable Primary Care Provider Unavailabl e Encounter Details Date Type Department Care Team (Late st Contact Info) Description 02/09/2017 Historical Ophthalmology RST O[facility] 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 - 02/09/2017 8:03 AM CST Eye General CHIEF COMPLAINT Check up for vasculitis HISTORY OF PRESENT ILLNESS Increased MTX last july and as a result he is better. he thinks he might still get some leg lesionsbut overall much better. OMID is sl puffy but overall better, no more diplopia with upgaze. IMPRESSION / REPORT / PLAN #1 left orbital inflammation in association with positive ANCA no evidence of any disease activity today. Note MRI from this AM. Looks good. the increased MTX didhim a world of good #2 glaucoma suspect on basis of increased pressures. follow for now followed closely at home for this RTC 1 year or sooner prn DIAGNOSIS #1 left orbital inflammation in association with positive ANCA #2 glaucoma suspect CDM Reports - EYEGEN Id: [id number] Status: Fnl documented in this encounter Plan of Treatment Upcoming Encounters Date Type Department Care Team (Late st Contact Info) Description 06/26/2024 7:30 AM CDT Appointment Department of Laboratory Medicine and Pathology, [place], [place] [address] [place] [phone] Shauna Schmidt APRN, C.N.P., M.S. [address] [place] [phone] 06/26/2024 7:40 AM CDT Appointment Department of Laboratory Medicine and Pathology, [place], [place] [address] [place] [phone] Shauna Schmidt APRN, C.N.P., M.S. [address] [place] [phone] 06/26/2024 9:30 AM CDT Office Visit Division of Rheumatology in [address] [phone] Shauna Schmidt APRN, C.N.P., M.S. [address] [place] [phone] documented as of this encounter Visit Diagnoses Not on filedocumented in this encounter Additional Health Concerns Infection Onset Date Last Indicated Resolved Time Protective Environment 06/08/2022 06/08/2022 documented as of this encounter
--- OUTSIDE RECORDS SUMMARY | 2024-06-15 12:04 | XMS_ITS | Encounter Summary ---
Author Organization [facility] Address [address] [place] [address] Care Team Providers Care Barrel Maker Name Role Phone Unavailable Primary Care Provider Unavailabl e Encounter Details Date Type Department Care Team (Late st Contact Info) Description 11/19/2014 Historical Ophthalmology RST OPH 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 - 11/19/2014 7:53 AM CDT Eye General CHIEF COMPLAINT Swelling and redness of left eye HISTORY OF PRESENT ILLNESS Swelling and redness of left eye; constant; x 5 weeks; fluctuates in severity. Binocular, horizontal overlapping of images in upward gaze only. Episcleritis in left eye 20 years ago and 18 years ago; again recently, but was not treated with steroid drops for concern of increase in intraocular pressure. Just recently adjusted lowered Synthroid dosage. TJB: About 1 month ago he woke up with swelling of the left upper eyelid. He also noted that he haddiplopia in upgaze. His diplopia, redness, and edema have fluctuated since that time with some gooddays and some bad days. He has not been on any oral steroids. He has a history of hypothyroid treated with replacement. IMPRESSION / REPORT / PLAN Consult requested by: Rell Colon MD; Becca OWENS The following tests have been completed and need interpretation. Raheem Brooke has right hyper in gaze up and left #1 episcleritis left eye #2 left superior orbital mass pain is not part of this picture, swelling has been minimal as has the fluctuating redness. This should be biopsied. ?lymphoma DIAGNOSIS #1 episcleritis left eye #2 left superior orbital mass CDM Reports - EYEGEN Id: [id number] Status: Fnl documented in this encounter Plan of Treatment Upcoming Encounters Date Type Department Care Team (Late st Contact Info) Description 06/26/2024 7:30 AM CDT Appointment Department of Laboratory Medicine and Pathology, [facility] in [address] [phone] Shauna Schmidt APRN, C.N.P., M.S. [address] [place] [phone] 06/26/2024 7:40 AM CDT Appointment Department of Laboratory Medicine and Pathology, [facility] in [address] [phone] Shauna Schmidt APRN, C.N.P., M.S. [address] [place] [phone] 06/26/2024 9:30 AM CDT Office Visit Division of Rheumatology in [address] [phone] Shauna Schmidt APRN, C.N.P., M.S. [address] [place] [phone] documented as of this encounter Visit Diagnoses Not on filedocumented in this encounter Additional Health Concerns Infection Onset Date Last Indicated Resolved Time Protective Environment 06/08/2022 06/08/2022 documented as of this encounter
--- OUTSIDE RECORDS SUMMARY | 2024-06-15 12:04 | XMS_ITS | Encounter Summary ---
Author Organization [facility] Address [address] [place] [address] Care Team Providers Care Storage Administrator Name Role Phone Unavailable Primary Care Provider Unavailabl e Encounter Details Date Type Department Care Team (Late st Contact Info) Description 12/25/2014 Historical Ophthalmology RST OPH 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 - 12/25/2014 9:20 AM CST Eye General CHIEF COMPLAINT s/p Left Orbit - orbitotomy HISTORY OF PRESENT ILLNESS Patient is s/p Left Orbit - orbitotomy (superior orbitotomy, incisional biopsy with retrobulbar steroid injection) on 11/24/14. Returns today for f/u with Dr. Allen. TJB: He is doing well. No signficant pain. His diplopia that he was having in up gaze is resolved. He still has some swelling of the upper eyelid and feels like the upper eyelid is numb. Previous to surgery he had some hip and sternal pain both of which are better now. IMPRESSION / REPORT / PLAN #1 Orbital inflammation left eye S/P biopsy and steroid injection 11/2014 Stable since surgery, observe for now. His skin rash also got better after surgery but may be coming back now. Let's do this: if rash returns (and especially if orbital inflammation recurs) then let's get rheumeval (?underlying vasculitis??? or some other process to tie all of this together?). Consider retrobular steroids for orbit. He will call Looks good today though DIAGNOSIS #1 Orbital inflammation left eye CDM Reports - EYEGEN Id: [id number] Status: Fnl documented in this encounter Plan of Treatment Upcoming Encounters Date Type Department Care Team (Late st Contact Info) Description 06/26/2024 7:30 AM CDT Appointment Department of Laboratory Medicine and Pathology, [facility] in [address] [phone] Shauna Schmidt APRN, C.N.P., M.S. [address] [place] [phone] 06/26/2024 7:40 AM CDT Appointment Department of Laboratory Medicine and Pathology, [facility] in [place], [place] [address] [place] [phone] Shauna Schmidt APRN, Adina.N.P., M.S. [address] [place] [phone] 06/26/2024 9:30 AM CDT Office Visit Division of Rheumatology in [address] [phone] Shauna Schmidt APRN, C.N.P., M.S. [address] [place] [phone] documented as of this encounter Visit Diagnoses Not on filedocumented in this encounter Additional Health Concerns Infection Onset Date Last Indicated Resolved Time Protective Environment 06/08/2022 06/08/2022 documented as of this encounter
--- OUTSIDE RECORDS SUMMARY | 2024-06-15 12:04 | XMS_ITS | Encounter Summary ---
Author Organization [facility] Address [address] [place] [address] Care Team Providers Care Billet Bed Operator Name Role Phone Unavailable Primary Care Provider Unavailabl e Encounter Details Date Type Department Care Team (Late st Contact Info) Description 04/07/2016 Historical Ophthalmology RST OPH 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 - 04/07/2016 9:11 AM CST Eye General CHIEF COMPLAINT Recheck HISTORY OF PRESENT ILLNESS Overall better in terms of pain but injection took almost all of it away. Has some burning type of discomfort 3. artificial tears help this IMPRESSION / REPORT / PLAN #1 ANCA-associated vasculitis #2 Left orbital inflammation #3 Steroid induced ocular hypertension . We discussed options including retrobulbar steroids (Kenalog 40, Decadron 4). He wishes to proceed. DIAGNOSIS #1 ANCA-associated vasculitis #2 Left orbital inflammation #3 Steroid induced ocular hypertension CDM Reports - EYEGEN Id: [id number] Status: Fnl documented in this encounter Plan of Treatment Upcoming Encounters Date Type Department Care Team (Late st Contact Info) Description 06/26/2024 7:30 AM CDT Appointment Department of Laboratory Medicine and Pathology, [place], [place] [address] [place] [phone] Shauna Schmidt APRN, C.N.P., M.S. [address] [place] [phone] 06/26/2024 7:40 AM CDT Appointment Department of Laboratory Medicine and Pathology, [place], [place] [address] [place] [phone] Shauna Schmidt APRN, C.N.P., M.S. [address] [place] [phone] 06/26/2024 9:30 AM CDT Office Visit Division of Rheumatology in [address] [phone] Shauna Schmidt APRN, C.N.P., M.S. [address] [place] [phone] documented as of this encounter Visit Diagnoses Not on filedocumented in this encounter Additional Health Concerns Infection Onset Date Last Indicated Resolved Time Protective Environment 06/08/2022 06/08/2022 documented as of this encounter
--- OUTSIDE RECORDS SUMMARY | 2024-06-15 12:04 | XMS_ITS | Encounter Summary ---
Author Organization [facility] Address [address] [place] [address] Care Team Providers Care Ctrs Name Role Phone Unavailable Primary Care Provider Unavailabl e Encounter Details Date Type Department Care Team (Late st Contact Info) Description 05/01/2024 9:20 AM CDT Ancillary Procedure Department of Urology Social History Tobacco Use Types Packs/Day Years Used Date Smoking Tobacco: Former Cigarettes 1 03/17/1974 - 12/16/1977 Smokeless Tobacco: Never Alcohol Use Standard Drinks/Week Comments Yes 1 (1 standard drink = 0.6 oz pur e alcohol) [facility] Utilities Answer Date Recorded In the past 12 months has e electric, gas, oil, or water company threatened to shut off services in your [...] than three times a week 06/04/2022 Attends [employer] Not on file 06/04 Do you belong to any clubs o r organizations such as mu-ism groups, unions, fraternal or athletic groups, or [...] and heating? Not hard at all 06/04/2022 [facility] of Occupat ional Health - Occupational Stress [...] your living situation today? I have a [facility] place to live 06/15/2023 Education Answer Date Recorded What is the highest level of school you have completed or the highest degree you have received? 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 [address] [place] [phone] 06/26/2024 7:40 AM CDT Appointment Department of Laboratory Medicine and Pathology, [facility] in [place], [place] [address] [place] [phone] Shauna Schmidt APRN, C.N.P., M.S. [address] [place] [phone] 06/26/2024 9:30 AM CDT Office Visit Division of Rheumatology in [place], [place] [address] [place] [phone] Shauna Schmidt APRN, C.N.P., M.S. [address] [place] [phone] documented as of this encounter Procedures Procedure Name Priority Date/Time Associated Diagnosis Comments UROLOGY IMAGE EXAM Routine 05/01/2024 9: 20 AM CDT documented in this encounter Results * BLADDER-Urology Image Exam (05/01/2024 9:20 [...] IMAGING PROCE DURES Final Result IIMS NA documented in this encounter Visit Diagnoses Not on filedocumented in this encounter Additional Health Concerns Infection Onset Date Last Indicated Resolved Time Protective Environment 06/08/2022 06/08/2022 documented as of this encounter
--- OUTSIDE RECORDS SUMMARY | 2024-06-15 12:04 | XMS_ITS | Clinical Summary ---
Author Organization [facility] Address [address] [place] [address] Care Team Providers Care Dental Detail Representative Name Role Phone Rush Hope MD Primary Care Provider Allergies Active Allergy Reactions Criticality Noted Date Comments Tamsulosin Runny Nose 07/30/2013 Gluten GI Upset 12/04/2018 Omeprazole GI Upset 04/19/2007 Shellfish Containing Products 2006 Medications folic acid 1 mg tabletIndication s:Vasculitis Take 1 tablet by mouth once daily. 1 tablet 0 09/17/2015 Active methotrexate (RHEUMATREX) 2.5 mg tabletIndication s:Vasculitis 8 tablets weekly 8 tablet 03/16/2017 Active levothyroxine (SYNTHROID) 137 mcg tabletIndication s:Hypothyroidism , unspecified type Take 1 Tablet (137 mcg) by mouth before breakfast. 90 Tablet 3 03/03/2024 Active Active Problems Problem Noted Date Diagnosed Date Colon polyp 04/10/2011 Overview (09/21/2017): Colonoscopy 04/2011 polyp repeat in 5 years Colonoscopy 09/2017 diverticulosis, repeat in 5 years GERD (gastroesophageal reflux disease) 2 Overview (04/10/2011): EGD 04/2011 Reactive gastropathy H/O: asbestos exposure 09/07/2008 Arthralgia of knee 08/28/2008 Dermatophytosis of the body 08/28/2008 Unspecified hypothyroidism 04/30/2007 Vasculitis, ANCA positive Encounters Date Type Department Care Team Description 05/30/2024 Orders Only [address] [place] [phone] Rush Hope MD <No scans attached> 05/29/2024 Orders Only [facility] Scanner 1 scan: (1-Ord) [facility] 03/21/2024 Orders Only [facility] Scanner 1 scan: (1-Ord) [facility], UROGRAM, 03/21/2024 03/21/2024 Orders Only [facility] Scanner 1 scan: (1-Ord) [facility], EGFR, 03/21/2024 from Last 3 Months Immunizations Immunization Administration Dates Next Due Influenza, IIV3 (Age >=3 years) 02/18/2012,12/08 Influenza, IIV4 12/14/2022,,12/02/2019,11/30/19 19,03/16/2017,12/05/2013 Td (Age >=7 Years) 08/22/2021 Tdap 12/08/2009 Zoster (Shingrix-RZV, recombinant) 01/03/2019 Family History Medical History Relation Name Comments Alcohol/Drug Father Cancer Maternal Grandfather bladder Arthritis Maternal Grandmother rheumat oid Cancer-colon Mother Other Mother alopecia Diabetes Other uncle Cancer Paternal Grandfather leukemi a Heart Disease Paternal Grandmother Relation Name Status Comments Father Maternal Grandfather Maternal Grandmother Mother Other Paternal Grandfather Paternal Grandmother Social History Tobacco Use Types Packs/Day Years Used Date Smoking Tobacco: Former Cigarettes 0 02/05/1974 - 02/05/1977 Smokeless Tobacco: Never Alcohol Use Standard Drinks/Week Comments Yes 0 (1 standard drink = 0.6 oz pur e alcohol) seldom PHQ-2 Answer Date Recorded PHQ-2 TOTAL SCORE 5 02/28/2024 Social Connections Answer Date Recorded Frequency of Communication with Friends and Fami ly Not on file 02/05/2021 Financial Resource Strain Answer Date R ecorded Difficulty of Paying Living Expenses Not on file 02/05/2021 Difficulty of Paying Living Expenses Not on file 02/05/2021 Sex and Gender Information Value Date Recorded Sex Assigned at Not on file Legal Sex Male 5:23 AM LOC[facility]ENS Gender Identity Not on file Sexual Orientation Not on file Occupation Industry Job Start Date Job End Date Not on file Not on file Not on file Not on file Obstetrics History Last Filed Vital Signs Vital Sign Reading Time Taken Comments Blood Pressure 132/84 02/28/2024 2:54 PM LOC[facility]ENS Pulse 72 02/28/2024 2:54 PM [facility] Temperature 37.5 C (99.5 F) 02/28/2011 3:23 PM [facility] Respiratory Rate 16 04/26/2018 11:13 AM CDT Oxygen Saturation 100% 09/21/2017 9:41 AM CDT Inhaled Oxygen Concentration - - Weight 65.8 kg (145 lb) 02/28/2024 2:54 PM [facility]ENS Height 181.6 cm (5' 11.5) 02/28/2024 2:54 PM CS T Body Mass Index 19.94 02/28/2024 2:54 PM [facility]ENS Plan of Treatment Health Maintenance Due Date Last Done Comments Pneumococcal series for age 50+ (1 of 1 - PCV) 01/12/2012 Zoster (shingles) series for age 50+ (2 of 2) 02/28/2019 01/03/2019 RSV vaccine for adults or (1 - Risk 60-74 years 1-dose series) 2022 COVID-19 vaccine series (7 - Moderna risk season) 2024 01/12/2024, 12/10/2021, 05/07/2021, Additional history exists Influenza Vaccine (Season Ended) 2024 12/14/2022, 12/04/2020, 12/02/2019, Additional history exists BMI (ht and wt on same day) for age 18+ 02/27/2025 02/28/2024, 12/14/2022, 08/22/2021, Additional history exists Depression screening for age 12+ 02/28/2025 02/29/2024, 02/28/2024, 12/14/2022, Additional history exists Lipids for age 45-75 12/15/2027 12/14/2022, 08/22/2021, 03/16/2017, Additional history exists Colonoscopy through age 75 05/30/202905/30, 05/29/2024, 09/21/2017, Additional history exists Tetanus booster 08/23/2031 08/22/2021, 12/08/2009 Tdap Completed 12/08/2009 Hepatitis C screening for ag e 18-79 Completed 08/22/2021, 08/15/2002 HIV for age 15-65 Completed 02/28/2024 Procedures Procedure Name Priority Date/Time Associated Diagnosis Comments COLONOSCOPY SCREENING Routine 05/30/2024 8:48 AM CDT Screening for colon cancer SCAN-COLONOSCOPY 05/29/2024 12:0 0 AM CDT SCAN-LABORATORY REPORT 12:00 AM [facility] SCAN-CT INTERPRETATION 12:00 AM [facility] ANTI HIV 1/2 Routine 02/28/2024 3:57 PM [facility] Screen for STD (sexually transmitted disease) LIPID PANEL W REFLEX MEASURED LDL Routine 12/14/2022 1:55 PM [facility] Acquired hypothyroidism ANTI HCV Routine 08/22/2021 7:08 PM CDT Encounter for HCV screening test for low risk patient from Last 3 Months or Most Recently Relevant to Health Maintenance Results * SCAN-COLONOSCOPY (05/29/2024 12:00 AM CDT) us Scanner OTHER Final Result * SCAN-LABORATORY REPORT (03/21/2024 12:00 AM [facility]) us Scanner OTHER Final Result * SCAN-CT INTERPRETATION (03/21/2024 12:00 AM [facility]) Anatomical Region Laterality Modality Other us Scanner OTHER Final Result * ANTI HIV 1/2 (02/28/2024 3:57 PM [facility]) HIV AG/AB, 4TH GEN NON-REACT FARHAT NON-REACT FARHAT [facility] Comment: HIV-1 antigen and HIV-1/HIV-2 antibodies were not detected. There is no laboratory evidence of HIV infection. PLEASE NOTE: This information has been disclosed to you from records whose confidentiality may be protected by state law. If your state requires such protection, then the state law prohibits you from making any further disclosure of the information without the specific written consent of the person to whom it pertains, or as otherwise permitted by law. A general authorization for the release of medical or other information is NOT sufficient for this purpose. For additional information please refer to http://education.[employer]/faq/QMF920 (This link is being provided for informational/ educational purposes only.) The performance of this assay has not been clinically validated in patients less than 2 years old. Blood BLOOD SPECIMEN / Unknown 02/28/2024 3:57 PM [facility] 02/28/2024 3:58 PM [facility] Narrative [facility] - 03/01/2024 2:53 AM [facility] FASTING:NO FASTING: NO Rush Hope MD SEND OUTS Final R esult [employer] [facility] [address] [place] [phone], [facility] [address] [place] [address] * (ABNORMAL) LIPID PANEL W REFLEX MEASURED LDL (12/14/2022 1:55 PM [facility]) CHOLESTEROL,TOTAL 260(H) 100 - 199 mg/dL 12/14/2022 2:39 PM [facility] Comment: Cholesterol, Total Reference Ranges Desirable <200 mg/dL Borderline 200-239 mg/dL High >=240 mg/dL TRIGLYCERIDES 126 <150 mg/dL 12/14/2022 2:39 PM [facility] HDL CHOLESTEROL 62 >40 mg/dL 3 2:39 PM [facility] NON-HDL CHOLESTEROL 198(H) <145 mg/dl 12/14/2022 2:39 PM [facility] CHOL/HDL RATIO 4.19 <4.50 12/14/2022 2:39 PM [facility] LDL CHOLESTEROL 173(H) <=130 mg/dL 12/14/2022 2:39 PM [facility] VLDL CHOLESTEROL 25 <=30 mg/dL 12/14/2022 2:39 PM [facility] PROVIDER ORDERED STATUS RANDOM 12/14/2022 2:39 PM [facility] Blood BLOOD SPECIMEN / Unknown Venipuncture / Unknown 12/14/2022 1:55 PM [facility] 12/14/2022 1:55 PM [facility] us Rush Hope MD CHEMISTRY Final R [facility] [address] [place] [address] * ANTI HCV (08/22/2021 7:08 PM CDT) HEPATITIS C ANTIBODY Non-React farhat Non-React farhat 08/23/2021 6:39 PM CDT [facility] Mobile [facility] 7 [facility] Comment:Antibodies to HCV no t detected; does not exclude the possibility of exposure to HCV. Blood BLOOD SPECIMEN / Unknown Venipuncture / Unknown 08/22/2021 7:08 PM CDT 08/22/2021 7:11 PM CDT us Rush Hope MD SEND OUTS Final [facility] [address] [place] [address], from Last 3 Months or Most Recently Relevant to Health Maintenance Insurance [place] [id number] [employer] [place] [id number] Care Teams Dental Detail Representative Relationship Specialty Start Date End Date Rush Hope MD [address] [place] [address] [place] [address] PCP - General 07/02/12
--- OUTSIDE RECORDS SUMMARY | 2024-06-15 12:04 | XMS_ITS | Encounter Summary ---
Author Organization [facility] Address [address] [place] [address] Care Team Providers Care Snapper On Name Role Phone Unavailable Primary Care Provider Unavailabl e Encounter Details Date Type Department Care Team (Late st Contact Info) Description 05/07/2015 Historical Ophthalmology RST OPH [place]adio 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 - 05/07/2015 10:26 AM CDT Eye General CHIEF COMPLAINT follow up Left Orbit - orbitotomy HISTORY OF PRESENT ILLNESS swelling never went completely away but then in January may have gotten worse again and is gradually progressive. OMID is swollen and lately has an achy feeling. Vision is OK. Also has skin lesions on legs which started in January as well. IMPRESSION / REPORT / PLAN #1 recurrent left orbital inflammation he also has mild episcleritis, skins lesions. My concern is that this might be part of a bigger picture. rheum and derm eval pending. Will defer Rx of orbit until systemic done. DIAGNOSIS #1 recurrent left orbital inflammation CDM Reports - EYEGEN Id: [id number] Status: Fnl documented in this encounter Plan of Treatment Upcoming Encounters Date Type Department Care Team (Late st Contact Info) Description 06/26/2024 7:30 AM CDT Appointment Department of Laboratory Medicine and Pathology, [place], [place] [address] [place] [phone] Shauna Schmidt APRN, C.N.P., M.S. [address] [place] [phone] 06/26/2024 7:40 AM CDT Appointment Department of Laboratory Medicine and Pathology, [place], [place] [address] [place] [phone] Shauna Schmidt APRN, C.N.P., M.S. [address] [place] [phone] 06/26/2024 9:30 AM CDT Office Visit Division of Rheumatology in [place], [place] [address] [place] [phone] Shauna Schmidt APRN, C.N.P., M.S. [address] [place] [phone] documented as of this encounter Visit Diagnoses Not on filedocumented in this encounter Additional Health Concerns Infection Onset Date Last Indicated Resolved Time Protective Environment 06/08/2022 06/08/2022 documented as of this encounter
[2024-06-15 12:42] VITALS: BP 152/87; PULSE 66; RESP 18; TEMP 36.4; O2SAT 99; BMI 21.6
--- NOTE | 2024-06-15 13:04 | ED.GENADULT ---
HPI - General Adult General Time Seen by Provider: 13:04 Date Seen: 06/15/24 Chief complaint: Extremity Pain/Injury, Upper Stated complaint: L index finger poss infection Time Seen by Provider: 06/15/24 13:04 Source: patient and RN notes reviewed Mode of arrival: ambulatory Limitations: no limitations Related Data Home Medications ?Medication ?Instructions ?Recorded ?Confirmed folic acid 1 mg tablet 1 mg PO DAILY 06/13/24 06/15/24 levothyroxine 125 mcg tablet 125 mcg PO QAM 06/13/24 06/15/24 methotrexate sodium 2.5 mg tablet 17.5 mg PO .weekly 06/13/24 06/15/24 Previous Rx's ?Medication ?Instructions ?Recorded cephalexin 500 mg capsule 500 mg PO TID 7 days #21 caps 06/13/24 Allergies Allergy/AdvReac Type Severity Reaction Status Date / Time Corticosteroids Allergy Verified 06/15/24 12:46 (Glucocorticoids) shellfish derived Allergy Verified 06/15/24 12:46 PFSH PFSH Social History Smoking Status: Never smoker How often do you have a drink containing alcohol: 2-4 times a month How many standard drinks containing alcohol do you have on a typical day: 1 or 2 AUDIT-C Alcohol total score: 2 Non-prescribed substance use: denies use Exam Const: Vital Signs, click to edit/add: Vital Signs - 24 hr 06/15/24 12:42 Temperature 97.5 F L Pulse Rate [Pulse Oximeter] 66 Respiratory Rate 18 Blood Pressure [Ri ght Upper Arm] 152/87 H Pulse Oximetry 99 Oxygen Delivery Me thod Room Air Course Vital Signs Vital signs: Initial Vital Signs Temperature 97.5 F L 06/15/24 12:42 Temperature Source Temporal Artery Scan 06/15/24 12:42 Pulse Rate 66 06/15/24 12:42 Respiratory Rate 18 06/15/24 12:42 Blood Pressure 152/87 H 06/15/24 12:42 Blood Pressure Mean 108 H 06/15/24 12:42 Blood Pressure Position Sitting 06/15/24 12:42 Pulse Oximetry 99 06/15/24 12:42 Oxygen Delivery Method Room Air 06/15/24 12:42 Vital Signs Temperature 97.5 F L 06/15/24 12:42 Pulse Rate 66 06/15/24 12:42 Respiratory Rate 18 06/15/24 12:42 Blood Pressure 152/87 H 06/15/24 12:42 Pulse Oximetry 99 06/15/24 12:42 Oxygen Delivery Method Room Air 06/15/24 12:42 Temperature 97.5 F L 06/15/24 12:42 Pulse Rate 66 06/15/24 12:42 Respiratory Rate 18 06/15/24 12:42 Blood Pressure 152/87 H 06/15/24 12:42 Pulse Oximetry 99 06/15/24 12:42 Oxygen Delivery Method Room Air 06/15/24 12:42 Medical Decision Making Imaging Data Finger x-ray: Attestation: I have reviewed the pertinent imaging results. Radiologist's impression: Bones: Alignment is normal. No fractures or bone lesions. No osseous erosion, osteolysis or periosteal reaction. Joint spaces: Tiny osteophyte along the ulnar aspect of the 2nd DIP joint. Soft tissues: No radiopaque foreign body or significant soft tissue swelling. Impression: 1. No acute fracture. No radiographic evidence of osteomyelitis or inflammatory arthritis. 2. Tiny osteophyte at the ulnar aspect of the 2nd DIP joint. Discharge Plan Discharge Clinical Impression: Abscess around fingernail Patient Disposition: Home, Self-Care Condition: Improved Additional Instructions: Stop Keflex and start doxycycline for treatment of infection. Soak your finger twice a day. Seek medical attention for worsening symptoms. Ibuprofen or Tylenol as needed for pain. I agree with you and that you should not work tomorrow. Return as needed. Await the wound culture. Prescriptions: No Action methotrexate sodium 2.5 mg tablet 17.5 mg PO .weekly levothyroxine 125 mcg tablet 125 mcg PO QAM folic acid 1 mg tablet 1 mg PO DAILY cephalexin 500 mg capsule 500 mg PO TID 7 Days Qty: 21 0RF Follow Up/Referrals: Rush Hope MD [Primary Care Provider] - Stand Alone Forms: [facility] Info Instructions
--- OUTSIDE RECORDS SUMMARY | 2024-06-15 13:15 | XMS_ITS | Encounter Summary ---
Author Organization [facility] Address [address] [place] [address] Care Team Providers Care Stock Selector Name Role Phone Unavailable Primary Care Provider Unavailabl e Encounter Details Date Type Department Care Team (Late st Contact Info) Description 11/19/2014 Historical Ophthalmology RST OPH 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 [address] [place] [phone] 06/26/2024 7:40 AM CDT Appointment Department of Laboratory Medicine and Pathology, [facility] in [address] [phone] Shauna Schmidt APRN, C.N.P., M.S. [address] [place] [phone] 06/26/2024 9:30 AM CDT Office Visit Division of Rheumatology in [address] [phone] Shauna Schmidt APRN, C.N.P., M.S. [address] [place] [phone] documented as of this encounter Visit Diagnoses Not on filedocumented in this encounter Additional Health Concerns Infection Onset Date Last Indicated Resolved Time Protective Environment 06/08/2022 06/08/2022 documented as of this encounter
--- OUTSIDE RECORDS SUMMARY | 2024-06-15 13:15 | XMS_ITS | Encounter Summary ---
Author Organization [facility] Address [address] [place] [address] Care Team Providers Care Fountain Vending Mechanic Name Role Phone Unavailable Primary Care Provider Unavailabl e Encounter Details Date Type Department Care Team (Late st Contact Info) Description 12/25/2014 Historical Ophthalmology RST 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 [address] [place] [phone] 06/26/2024 7:40 AM CDT Appointment Department of Laboratory Medicine and Pathology, [facility] in [place], [place] [address] [place] [phone] Shauna Schmidt APRN, Adina.N.P., M.S. [address] [place] [phone] 06/26/2024 9:30 AM CDT Office Visit Division of Rheumatology in [address] [phone] Shauna Schmidt APRN, C.N.P., M.S. [address] [place] [phone] documented as of this encounter Visit Diagnoses Not on filedocumented in this encounter Additional Health Concerns Infection Onset Date Last Indicated Resolved Time Protective Environment 06/08/2022 06/08/2022 documented as of this encounter
--- OUTSIDE RECORDS SUMMARY | 2024-06-15 13:15 | XMS_ITS | Encounter Summary ---
Author Organization [facility] Address [address] [place] [address] Care Team Providers Care Tax Consultant Name Role Phone Unavailable Primary Care Provider Unavailabl e Encounter Details Date Type Department Care Team (Late st Contact Info) Description 05/07/2015 Historical Ophthalmology RST OPH 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 [address] [place] [phone] 06/26/2024 7:40 AM CDT Appointment Department of Laboratory Medicine and Pathology, [place], [place] [address] [place] [phone] Shauna Schmidt APRN, C.N.P., M.S. [address] [place] [phone] 06/26/2024 9:30 AM CDT Office Visit Division of Rheumatology in [place], [place] [address] [place] [phone] Shauna Schmidt APRN, C.N.P., M.S. [address] [place] [phone] documented as of this encounter Visit Diagnoses Not on filedocumented in this encounter Additional Health Concerns Infection Onset Date Last Indicated Resolved Time Protective Environment 06/08/2022 06/08/2022 documented as of this encounter
--- OUTSIDE RECORDS SUMMARY | 2024-06-15 13:15 | XMS_ITS | Encounter Summary ---
Author Organization [facility] Address [address] [place] [address] Care Team Providers Care Freight Hustler Name Role Phone Unavailable Primary Care Provider Unavailabl e Encounter Details Date Type Department Care Team (Late st Contact Info) Description 04/07/2016 Historical Ophthalmology RST OPH [place]adio 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 [address] [place] [phone] 06/26/2024 7:40 AM CDT Appointment Department of Laboratory Medicine and Pathology, [place], [place] [address] [place] [phone] Shauna Schmidt APRN, C.N.P., M.S. [address] [place] [phone] 06/26/2024 9:30 AM CDT Office Visit Division of Rheumatology in [address] [phone] Shauna Schmidt APRN, C.N.P., M.S. [address] [place] [phone] documented as of this encounter Visit Diagnoses Not on filedocumented in this encounter Additional Health Concerns Infection Onset Date Last Indicated Resolved Time Protective Environment 06/08/2022 06/08/2022 documented as of this encounter
--- OUTSIDE RECORDS SUMMARY | 2024-06-15 13:15 | XMS_ITS | Encounter Summary ---
Author Organization [facility] Address [address] [place] [address] Care Team Providers Care Windrower Operator Name Role Phone Unavailable Primary Care Provider Unavailabl e Encounter Details Date Type Department Care Team (Late st Contact Info) Description 02/09/2017 Historical Ophthalmology RST OPH 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 [address] [place] [phone] 06/26/2024 7:40 AM CDT Appointment Department of Laboratory Medicine and Pathology, [place], [place] [address] [place] [phone] Shauna Schmidt APRN, C.N.P., M.S. [address] [place] [phone] 06/26/2024 9:30 AM CDT Office Visit Division of Rheumatology in [address] [phone] Shauna Schmidt APRN, C.N.P., M.S. [address] [place] [phone] documented as of this encounter Visit Diagnoses Not on filedocumented in this encounter Additional Health Concerns Infection Onset Date Last Indicated Resolved Time Protective Environment 06/08/2022 06/08/2022 documented as of this encounter
--- OUTSIDE RECORDS SUMMARY | 2024-06-15 13:15 | XMS_ITS | Encounter Summary ---
Author Organization [facility] Address [address] [place] [address] Care Team Providers Care Rn Case Manager Name Role Phone Unavailable Primary Care Provider Unavailabl e Encounter Details Date Type Department Care Team (Late st Contact Info) Description 02/17/2016 Historical Ophthalmology RST OPH 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 [address] [place] [phone] 06/26/2024 7:40 AM CDT Appointment Department of Laboratory Medicine and Pathology, [facility] in [place], [place] [address] [place] [phone] Shauna Schmidt APRN, C.N.P., M.S. [address] [place] [phone] 06/26/2024 9:30 AM CDT Office Visit Division of Rheumatology in [place], [place] [address] [place] [phone] Shauna Schmidt APRN, C.N.P., M.S. [address] [place] [phone] documented as of this encounter Visit Diagnoses Not on filedocumented in this encounter Additional Health Concerns Infection Onset Date Last Indicated Resolved Time Protective Environment 06/08/2022 06/08/2022 documented as of this encounter
--- OUTSIDE RECORDS SUMMARY | 2024-06-15 13:15 | XMS_ITS | Encounter Summary ---
Author Organization [facility] Address [address] [place] [address] Care Team Providers Care Paranormal Investigator Name Role Phone Unavailable Primary Care Provider Unavailabl e Reason for Visit * Reason Comments Consult Blood in Urine * Appointment Request (Routine) - Pending Review Specialty Diagnoses / Procedures Referred By Pari hyde Referred To Contact Urology Diagnoses Microhematuria Rush Hpoe M.D. [address] [place] [phone] Phone: tel: fax: Referral ID Status Reason Start Date Expiration Date V isits Requested Visits Authorized [id number] Pending Review 03/26/2024 06/26/2025 1 1 Encounter Details Date Type Department Care Team (Latest Contact Info) Description 05/01/2024 9:15 AM CDT Comprehensive Visit Department of Urology in [place], [place] [address] [place] [address] Alexandro Gomez M.D. [address] [place] [phone] Hematuria Urinalysis (Primary Dx); Benign [...] the past 12 months has th e [employer], gas, oil, or water [employer] threatened to shut off services in your [...] than three times a week 06/04/2022 Attends Confucianism Services Not on file 06/04 Do you belong to any clubs o r organizations such as tenriism groups, unions, fraternal or athletic groups, or [...] and heating? Not hard at all 06/04/2022 [employer] [place] [facility] [employer] - Occupational Stress [...] your living situation today? I have a [facility] place to live 06/15/2023 Education Answer Date Recorded What is the highest level of school you have completed or the highest degree you have received? 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 IMPRESSION: 1. [id number] benign prostatic hypertrophy with mild lower urinary [...] Appointment Department of Laboratory Medicine and Pathology, [place], [place] [address] [place] [phone] Shauna Schmidt APRN, C.N.P., M.S. [address] [place] [phone] 06/26/2024 7:40 AM CDT Appointment Department of Laboratory Medicine and Pathology, [place], [place] [address] [place] [phone] Shauna Schmidt APRN, C.N.P., M.S. [address] [place] [phone] 06/26/2024 9:30 AM CDT Office Visit Division of Rheumatology in [place], [place] [address] [place] [phone] Shauna Schmidt, HALLE C.N.P., M.S. [address] [place] [phone] documented as of this encounter Visit Diagnoses Diagnosis Hematuria Urinalysis- Primary Benign Prostatic Hyperplasia Hypertrophy With Obstruction Slowing Urinary Stream documented in this encounter Additional Health Concerns Infection Onset Date Last Indicated Resolved Time Protective Environment 06/08/2022 06/08/2022 documented as of this encounter
--- OUTSIDE RECORDS SUMMARY | 2024-06-15 13:15 | XMS_ITS | Encounter Summary ---
Author Organization [facility] Address [address] [place] [address] Care Team Providers Care Deputy Editor In Chief Name Role Phone Unavailable Primary Care Provider Unavailabl e Encounter Details Date Type Department Care Team (Late st Contact Info) Description 07/21/2016 Historical Ophthalmology RST OPH 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 [address] [place] [phone] 06/26/2024 7:40 AM CDT Appointment Department of Laboratory Medicine and Pathology, [facility] in [place], [place] [address] [place] [phone] Shauna Schmidt APRN, C.N.P., M.S. [address] [place] [phone] 06/26/2024 9:30 AM CDT Office Visit Division of Rheumatology in [place], [place] [address] [place] [phone] Shauna Schmidt APRN, C.N.P., M.S. [address] [place] [phone] documented as of this encounter Visit Diagnoses Not on filedocumented in this encounter Additional Health Concerns Infection Onset Date Last Indicated Resolved Time Protective Environment 06/08/2022 06/08/2022 documented as of this encounter
--- OUTSIDE RECORDS SUMMARY | 2024-06-15 13:15 | XMS_ITS | Clinical Summary ---
Author Organization [facility] Address [address] [place] [address] Care Team Providers Care General Counsel Name Role Phone Rush Hope MD Primary [...] Department Care Team Description 05/30/2024 Orders Only [address] [place] [address] Rush Hope MD <No scans attached> 05/29/2024 Orders Only [facility] Scanner 1 scan: (1-Ord) [facility] 03/21/2024 Orders Only [facility] Scanner 1 scan: (1-Ord) [place] UROGRAM, 03/21/2024 03/21/2024 Orders Only [facility] Scanner 1 scan: (1-Ord) [facility], EGFR, 03/21/2024 from Last 3 Months Immunizations [...] on file Legal Sex Male 5:23 AM DORMITORY MAID Gender Identity Not on file Sexual Orientation Not on file Occupation Industry Job Start Date Job End Date Not on file Not on file Not on file Not on file Obstetrics History Last Filed Vital Signs Vital Sign Reading Time Taken Comments Blood Pressure 132/84 02/28/2024 2:54 PM DORMITORY MAID Pulse 72 02/28/2024 2:54 PM DORMITORY MAID Temperature 37.5 C (99.5 F) 02/28/2011 3:23 PM DORMITORY MAID Respiratory Rate 16 04/26/2018 11:13 AM CDT Oxygen Saturation 100% 09/21/2017 9:41 AM CDT Inhaled Oxygen Concentration - - Weight 65.8 kg (145 lb) 02/28/2024 2:54 PM DORMITORY MAID Height 181.6 cm (5' 11.5) 02/28/2024 2:54 PM CS T Body Mass Index 19.94 02/28/2024 2:54 PM DORMITORY MAID Plan of Treatment Health Maintenance Due Date [...] 0 AM CDT SCAN-LABORATORY REPORT 12:00 AM DORMITORY MAID SCAN-CT INTERPRETATION 12:00 AM DORMITORY MAID ANTI HIV 1/2 Routine 02/28/2024 3:57 PM DORMITORY MAID Screen for STD (sexually transmitted disease) LIPID PANEL W REFLEX MEASURED LDL Routine 12/14/2022 1:55 PM DORMITORY MAID Acquired hypothyroidism ANTI HCV Routine 08/22/2021 7:08 PM CDT Encounter for HCV screening test for low risk patient from Last 3 Months or Most Recently Relevant to Health Maintenance Results * SCAN-COLONOSCOPY (05/29/2024 12:00 AM CDT) us Scanner OTHER Final Result * SCAN-LABORATORY REPORT (03/21/2024 12:00 AM DORMITORY MAID) us Scanner OTHER Final Result * SCAN-CT INTERPRETATION (03/21/2024 12:00 AM DORMITORY MAID) Anatomical Region Laterality Modality Other us Scanner OTHER Final Result * ANTI HIV 1/2 (02/28/2024 3:57 PM DORMITORY MAID) HIV AG/AB, 4TH GEN NON-REACT FARHAT NON-REACT FARHAT [facility] Comment: HIV-1 antigen and HIV-1/HIV-2 antibodies [...] purpose. For additional information please refer to http://education.[employer]/faq/ABK032 (This link is being provided for informational/ educational purposes only.) The performance of this assay has not been clinically validated in patients less than 2 years old. Blood BLOOD SPECIMEN / Unknown 02/28/2024 3:57 PM DORMITORY MAID 02/28/2024 3:58 PM DORMITORY MAID Narrative [facility] - 03/01/2024 2:53 AM DORMITORY MAID FASTING:NO FASTING: NO Rush Hope MD SEND OUTS Final R esult Realm [facility] [address] [place] [address], [facility] [address] [place] [address] * (ABNORMAL) LIPID PANEL W REFLEX MEASURED LDL (12/14/2022 1:55 PM DORMITORY MAID) CHOLESTEROL,TOTAL 260(H) 100 - 199 mg/dL 12/14/2022 2:39 PM [facility] Comment: Cholesterol, Total Reference Ranges Desirable <200 mg/dL Borderline 200-239 mg/dL High >=240 mg/dL TRIGLYCERIDES 126 <150 mg/dL 12/14/2022 2:39 PM [facility] HDL CHOLESTEROL 62 >40 mg/dL 3 2:39 PM [facility] NON-HDL CHOLESTEROL 198(H) <145 mg/dl 12/14/2022 2:39 PM [facility] CHOL/HDL RATIO 4.19 <4.50 12/14/2022 2:39 PM [facility] LDL CHOLESTEROL 173(H) <=130 mg/dL 12/14/2022 2:39 PM [facility] VLDL CHOLESTEROL 25 <=30 mg/dL 12/14/2022 2:39 PM [facility] PROVIDER ORDERED STATUS RANDOM 12/14/2022 2:39 PM DORMITORY MAID [facility] Blood BLOOD SPECIMEN / Unknown Venipuncture / Unknown 12/14/2022 1:55 PM DORMITORY MAID 12/14/2022 1:55 PM DORMITORY MAID us Rush Hope MD CHEMISTRY Final R [facility] [address] [place] [address] * ANTI HCV (08/22/2021 7:08 PM CDT) HEPATITIS C ANTIBODY Non-React farhat Non-React farhat 08/23/2021 6:39 PM CDT [facility] Comment:Antibodies to HCV no t detected; does not exclude the possibility of exposure to HCV. Blood BLOOD SPECIMEN / Unknown Venipuncture / Unknown 08/22/2021 7:08 PM CDT 08/22/2021 7:11 PM CDT us Rush Hope MD SEND OUTS Final [facility] [address] [place] [address], from Last 3 Months or Most Recently Relevant to Health Maintenance Insurance [place] [id number] [employer] [place] [id number] Care Teams General Counsel Relationship Specialty Start Date End Date Rush Hope MD [address] [place] [address] [place] [address] PCP - General 07/02/12
--- OUTSIDE RECORDS SUMMARY | 2024-06-15 13:16 | XMS_ITS | Encounter Summary ---
Author Organization [facility] Address [address] [place] [address] Care Team Providers Care Oil Tanker Captain Name Role Phone Unavailable Primary Care Provider [...] drink = 0.6 oz pur e alcohol) [facility] Utilities Answer Date Recorded In the past [...] than three times a week 06/04/2022 Attends Tenriism Services Not on file 06/04 Do you belong to any clubs o r organizations such as faith groups, unions, fraternal or athletic groups, or [...] and heating? Not hard at all 06/04/2022 [facility] [place] of Occupat ional Health - Occupational Stress [...] your living situation today? I have a [facility] place to live 06/15/2023 Education Answer Date Recorded What is the highest level of school you have completed or the highest degree you have received? 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 [address] [place] [phone] 06/26/2024 7:40 AM CDT Appointment Department of Laboratory Medicine and Pathology, [facility] in [place], [place] [address] [place] [place] [phone] Shauna Schmidt APRN, C.N.P., M.S. [address] [place] [phone] 06/26/2024 9:30 AM CDT Office Visit Division of Rheumatology in [place], [place] [address] [place] [address] Shauna Schmidt APRN, C.N.P., M.S. [address] [place] [address] documented as of this encounter Procedures Procedure [...]
--- OUTSIDE RECORDS SUMMARY | 2024-06-15 13:16 | XMS_ITS | Encounter Summary ---
Author Organization [facility] Address [address] [place] [address] Care Team Providers Care Straight Ruling Machine Operator Name Role Phone Unavailable Primary Care Provider Unavailabl e Encounter Details Date Type Department Care Team (Late st Contact Info) Description 05/12/2024 Orders Only Division of Rheumatology in [place], [place] [address] [place] [phone] Shauna Schmidt, HALLE, C.N.P., M.S. 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) Social History Tobacco Use Types Packs/Day Years Used Date Smoking Tobacco: Former Cigarettes 1 03/17/1974 - 12/16/1977 Smokeless Tobacco: Never Alcohol Use Standard Drinks/Week Comments Yes 1 (1 standard drink = 0.6 oz pur e alcohol) [facility] Utilities Answer Date Recorded In the past 12 months has e [employer], gas, oil, or water [employer] threatened to shut off services in your [...] than three times a week 06/04/2022 Attends Buddhist Services Not on file 06/04 Do you belong to any clubs o r organizations such as islam groups, unions, fraternal or athletic groups, or [...] and heating? Not hard at all 06/04/2022 [facility] of Occupat ional Health - Occupational Stress [...] your living situation today? I have a [facility] place to live 06/15/2023 Education Answer Date Recorded What is the highest level of school you have completed or the highest degree you have received? 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 [address] [place] [phone] 06/26/2024 7:40 AM CDT Appointment Department of Laboratory Medicine and Pathology, [place], [place] [address] [place] [phone] Shauna Schmidt APRN C.N.P., M.S. [address] [place] [phone] 06/26/2024 9:30 AM CDT Office Visit Division of Rheumatology in [place], [place] [address] [place] [address] Shauna Schmidt APRN, C.N.P., M.S. 200 [place] [address] Scheduled Orders Name Type Priority Associated Diagnoses [...]
--- OUTSIDE RECORDS SUMMARY | 2024-06-15 13:16 | XMS_ITS | Clinical Summary ---
Author Organization [facility] Address [address] [place] [address] Care Team Providers Care Hair Boiler Name Role Phone Unavailable Primary Care Provider Unavailabl e Source Comments Patient records contain information from all sites at [facility]. For routine questions regarding patient records, call [phone] during business hours, M-F 8:00 AM - 5:00 PM Central Time. Record requests for emergency care only can be directed to [phone] at any time.[facility] Allergies Active Allergy Reactions Criticality Noted Date [...] 05/12/2024 Orders Only Division of Rheumatology in [place], [place] [address] [place] [address] Shauna Schmidt APRN, C.N.P., M.S. 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 Hematuria Urinalysis (Primary Dx); [...] years old Alcohol abuse Paternal Grandfather Elias Omar chronic leukemia Leukemia Paternal Grandfather Elias Omar chronic leukemia Alcohol abuse Sister 1 harvinder [...] alamo Mother nate heil Paternal Grandfather Elias Omar chronic leukemia Sister 1 harvinder [place] Sister 2 romy heil Sister 3 israel heil Sister 4 Rain Talbot ( Cuca) Social History Tobacco Use Types Packs/Day Years Used Date Smoking Tobacco: Former Cigarettes 1 03/17/1974 - 12/16/1977 Smokeless Tobacco: Never Tobacco Cessation:Counseling Given: Not Answered Alcohol Use Standard Drinks/Week Comments Yes 1 (1 standard drink = 0.6 oz pur e alcohol) [facility] Utilities Answer Date Recorded In the past 12 months has e [employer], gas, oil, or water [employer] threatened to shut off services in your [...] than three times a week 06/04/2022 Attends Restorationism Services Not on file 06/04 Do you belong to any clubs o r organizations such as mosque groups, unions, fraternal or athletic groups, or [...] and heating? Not hard at all 06/04/2022 [facility] of Occupat ional Health - Occupational [...] your living situation today? I have a [facility] place to live 06/15/2023 Education Answer Date Recorded What is the highest level of school you have completed or the highest degree you have received? 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 Gender Identity Male 07/24/2017 12:19 PM CDT Sexual Orientation Lesbian or Clark 07/24/2017 12 :19 PM CDT Last Filed Vital Signs Vital Sign Reading Time Taken Comments Blood Pressure 128/69 12/28/2023 1:02 PM WELDER AND FITTER Pulse 69 12/28/2023 1:02 PM WELDER AND FITTER Temperature 36.3 C (97.3 F) 12/28/2023 1:02 PM WELDER AND FITTER Respiratory Rate - - Oxygen Saturation - - Inhaled Oxygen Concentration - - Weight 66 kg (145 lb 8.1 oz) 12/28/2023 1:02 PM WELDER AND FITTER Height 180.8 cm (5' 11.18) 12/28/2023 1:[address] Body Mass Index 20.19 12/28/2023 1:02 PM WELDER AND FITTER Plan of Treatment Upcoming Encounters Date Type Department Care Team (Late st Contact Info) Description 06/26/2024 7:30 AM CDT Appointment Department of Laboratory Medicine and Pathology, [facility], in [place], [place] [address] [place] [address] Shauna Schmidt APRN, C.N.P., M.S. [address] [place] [phone] 06/26/2024 7:40 AM CDT Appointment Department of Laboratory Medicine and Pathology, [facility], in [place], [place] [address] [place] [phone] Shauna Schmidt APRN, C.N.P., M.S. [address] [place] [phone] 06/26/2024 9:30 AM CDT Office Visit Division of Rheumatology in [place], [place] [address] [place] [phone] Shauna Schmidt APRN, C.N.Tru., M.S. 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) Medication Therapy Kitchen Hand Not Anticoagulant CHRONIC VIRAL HEPATITIS PROFILE Routine [...] * CT UROGRAM-Outside CT (03/21/2024 1:25 PM WELDER AND FITTER) Narrative [facility] - 04/18/2024 4:59 PM CDT [...] PROCEDURES Final R esult Performing Organization Address [facility] Co de Phone Number [facility] NA * Glucose, Fasting (03/26/2020 10:24 AM WELDER AND FITTER) Pathologist [facility] Glucose, P 99 70 - 100 mg/dL 03/26/2020 11:28 AM WELDER AND FITTER DTL Last Intake 13 hr 03/26/2020 10:44 AM WELDER AND FITTER DTL Blood (Blood, Venous) 03/26/2020 10:24 AM WELDER AND FITTER 03/26/2020 10:44 AM WELDER AND FITTER Shauna Schmidt APRN, C.N.P., M.S. LAB BLOOD NO N ADD-ON Final Result Performing Organization Address [facility] de Phone Number [facility] [address] [place] [address], [facility] 200 [place] [address] * Thyroid Function Page (09/20/2018 11:01 AM CDT) Pathologist [facility] TSH, Sensitive 1.8 0.3 - 4.2 mIU/L 09/20/2018 3:11 PM CDT Blood (Blood, Venous) 09/20/2018 11:01 AM CDT 09/20/2018 2:15 PM CDT Shauna Schmidt APRN, C.N.P., M.S. LAB BLOOD AD D-ON Final Result Performing Organization Address [facility] Co de Phone Number [facility] 200 [place] [phone] * (ABNORMAL) Chronic Hepatitis Profile (06/23/2015 5:54 PM CDT) HBs Antibody, Quantitative, S <5.0 Unvaccinate d: <5.0; Vaccinated: >=12.0 MIU/ML [facility] HCV Ab, S Negative Negative [facility] Comment:Aooozh-es-dgwdtc rat io is <1.00. HBs Antigen, S Negative Negative [facility] HBs Antibody,S Negative Unvaccinate d: Negative; Vaccinated: Positive [facility] Comment:Patient is presumed to be not immune to infection with HBV. HBc Total Ab, S Positive(A) Negative [facility] Comment: If clinically indicated, testing for Hepatitis B Core IgM antibody is necessary to differentiate between acute and past HBV infection. 06/23/2015 5:54 PM CDT 06/23/2015 5:54 PM CDT Olegario Ndiaye M.D. LAB MICROBIOLOGY - BLOOD ORDERABLES Final Result [facility] [address] from Last 3 Months or Most Recently Relevant to Health Maintenance Additional Health Concerns Infection Onset Date Last Indicated Protective Environment 06/08/2022 3 Insurance [employer] [place] [id number]
--- NOTE | 2024-06-15 13:24 | CRLHL7_ITS ---
For Patients: As a result of the Cures Act, medical imaging exams and procedure reports are released immediately into your electronic medical record. You may view this report before your referring provider. If you have questions, please contact your health care provider. Indication: Swollen 2nd DIP joint Technique: Left 2nd digit, three views Comparison: None. Findings: Bones: Alignment is normal. No fractures or bone lesions. No osseous erosion, osteolysis or periosteal reaction. Joint spaces: Tiny osteophyte along the ulnar aspect of the 2nd DIP joint. Soft tissues: No radiopaque foreign body or significant soft tissue swelling. Impression: 1. No acute fracture. No radiographic evidence of osteomyelitis or inflammatory arthritis. 2. Tiny osteophyte at the ulnar aspect of the 2nd DIP joint. Dictated by Ana Castillo MD @ 06/15/2024 2:43:13 PM (Electronically Signed)
[2024-06-15 15:41] VITALS: BP 141/92; PULSE 70; RESP 18
[2024-06-15] MEDS: LIDOCAINE 1% 5 ml (pf) 5 ML VIAL 2 ML INJECTION (16:29)
== END 2024-06-15 15:39 | disposition home or self-care (01) ==
PROVIDERS: Emergency Provider Family Medicine; PCP Family Medicine
DX: L02.512 Cutaneous abscess of left hand (principal)
CPT/HCPCS: 10060; 73140; 87070; 99284

== ENCOUNTER 2024-10-31 09:13 | Outpatient (CLI) | payer OTHER, SELFPAY | END 2024-10-31 09:14 | disposition home or self-care (01) | LOC: NFLDREF 09:14 | PROVIDERS: PCP Family Medicine; Visit Provider Emergency Medicine | DX: E03.9 Hypothyroidism, unspecified (principal) | CPT/HCPCS: 84443 ==

== ENCOUNTER 2024-11-12 11:14 | Outpatient (CLI) | payer OTHER, SELFPAY | END 2024-11-12 11:15 | disposition home or self-care (01) | PROVIDERS: PCP Family Medicine; Visit Provider Physician Assistant | DX: R07.0 Pain in throat (principal) | CPT/HCPCS: 80053; 82607; 82746 ==

== ENCOUNTER 2024-11-21 07:36 | Outpatient (CLI) | payer OTHER, SELFPAY ==
--- NOTE | 2024-11-21 08:00 | CRLHL7_ITS ---
For Patients: As a result of the Century Cures Act, medical imaging exams and procedure reports are released immediately into your electronic medical record. You may view this report before your referring provider. If you have questions, please contact your health care provider. INDICATION: ACUTE PHARYNGITIS TECHNIQUE: CT of the neck with 75 cc Isovue 370 mL iodinated contrast agent IV. Coronal and sagittal reconstructions are included. COMPARISON: None FINDINGS: There is no mass or other lesion within the soft tissues of the suprahyoid or infrahyoid neck. Leftward deviation of the nasal septum with septal spur. No lymphadenopathy. The oral cavity, nasopharyngeal, oropharyngeal and hypopharyngeal mucosal spaces are normal. No periapical dental disease. The supraglottic, glottic and infraglottic larynx are normal. The airway including the trachea is normal and is patent. The parotid glands, submandibular and sublingual glands are normal in appearance. The thyroid gland is normal in appearance. The vascular structures opacify normally with contrast material. No suspicious lytic or blastic osseous lesions. Posterior disc osteophyte complex and uncovertebral joint hypertrophy and C5-6 results in mild spinal canal narrowing, moderate right and mild left neural foraminal narrowing. Visualized paranasal sinuses and mastoid air cells are clear. Visualized orbital and intracranial contents are normal. Supraclavicular regions, mediastinum and soft tissues of the imaged chest wall are normal. Visualized portions of the upper lungs are clear. IMPRESSION: 1. No suspicious enhancement or neck mass. 2. No evidence of acute inflammation. 3. No cervical lymphadenopathy. Please note that all CT scans at this facility use dose modulation, iterative reconstruction, and/or weight-based dosing when appropriate to reduce radiation dose to as low as reasonably achievable. Dictated by Capo Roy MD @ 11/24/2024 9:24:11 AM (Electronically Signed)
== END 2024-11-21 07:37 | disposition home or self-care (01) ==
LOC: CT 07:37
PROVIDERS: PCP Family Medicine; Visit Provider Physician Assistant
DX: J02.9 Acute pharyngitis, unspecified (principal)
CPT/HCPCS: 70491; Q9967